=== PATIENT | male | born 1980 | race Caucasian/White ===

== ENCOUNTER 2016-10-06 20:31 | Emergency (ER) | payer SELFPAY ==
[2016-10-06 21:01] VITALS: BP 140/90
--- NOTE | 2016-10-06 22:04 | RAD ---
Indication: LEFT knee pain. Weakness and difficulty bearing weight. Injury walking upstairs. Comparison: January 10, 2015 Technique: LEFT knee: AP, tunnel, lateral, sunrise views. Report: Negative for effusion, fracture, or malalignment. Advanced osteophytosis. Moderately severe lateral joint space narrowing and partial flattening of the articular surfaces. Suggestion of accessory ossicles or loose bodies at the posterior aspect of the intercondylar notch. Unremarkable soft tissue contours. IMPRESSION: No radiographic evidence for traumatic injury. Kellgren and Vivek grade 3 osteoarthritis.
[2016-10-06] MEDS ORDERED: oxyCODONE/Acetamin 5/325 MG* TAB PO ONE (22:09)
--- NOTE | 2016-10-06 22:09 | ED ---
Lower Extremity - HPI Summary HPI Summary: 36M presents with left knee pain today. Has history of chronic knee pain that has been getting worst. He states that he had surgery on the knee as a kid and they removed some cartilage. He states that three years ago had injury and told him that he tore part of meniscus and acl but that would not operate. Says that it has been causing pain since. He says the area has been catching and popping. He states today he was walking and it gave out and his pain became extreme. He denies any twisting to his joint. He denies any numbness or tingling. He took ibuprofen for pain. - History of Current Complaint Chief Complaint: EDExtremityLower Stated Complaint: LEFT KNEE PAIN Time Seen by Provider: 10/06/16 21:15 Pain Intensity: 7 - Allergies/Home Medications Allergies/Adverse Reactions: Allergies Allergy/AdvReac Type Severity Reaction Status Date / Time Hydrocodone [From Vicodin] AdvReac Intermediate Agitation Verified 10/06/16 20: 57 Morphine AdvReac Intermediate Itching Verified 10/06/16 20:57 Ketorolac Tromethamine AdvReac Headache Verified 10/06/16 20:57 [From Toradol] PMH/Surg Hx/FS Hx/Imm Hx Endocrine/Hematology History: Denies: Hx Diabetes, Hx Systemic Lupus Erythematosus Cardiovascular History: Denies: Hx Congestive Heart Failure, Hx Hypertension Respiratory History: Reports: Hx Asthma - A CHILD, FLARE UP WITH TEMPS OVER 100 OUTSIDE GI History: Reports: Hx Gall Bladder Disease - cholecystectomy, Other GI Disorders - inguinal hernia Denies: Hx Gastroesophageal Reflux Disease, Hx Hiatal Hernia History: Denies: Hx Dialysis, Hx Renal Disease Musculoskeletal History: Denies: Hx Rheumatoid Arthritis Psychiatric History: Denies: Hx Eating Disorder, Hx of Violent Episodes Against Others - Cancer History Hx Chemotherapy: No - Surgical History Surgery Procedure, Year, and Place: 2011 GB REMOVED HERE/APPY YRS AGO, inguinal hernia repair Hx Anesthesia Reactions: No - Immunization History Date of Tetanus Vaccine: utd Infectious Disease History: No Infectious Disease History: Denies: Traveled Outside the [place] in Last 30 Days - Family History Known Family History: Positive: None, Other - Mood disorders - Social History Alcohol Use: None Hx Substance Use: No Substance Use Type: Reports: None Hx Tobacco Use: No Smoking Status (MU): Never Smoked Tobacco Review of Systems Negative: Fever Negative: Chest Pain Negative: Shortness Of Breath Positive: Other - left knee pain All Other Systems Reviewed And Are Negative: Yes Physical Exam Triage Information Reviewed: Yes Vital Signs On Initial Exam: Initial Vitals Temp Pulse Resp BP Pulse Ox 97.8 F 97 16 140/90 96 10/06/16 20:59 10/06/16 20:59 10/06/16 20:59 10/06/16 20:59 10/06/16 20:59 Vital Signs Reviewed: Yes Appearance: Positive: Pain Distress Skin: Positive: Warm, Dry Head/Face: Positive: Normal Head/Face Inspection Eyes: Positive: Normal, Conjunctiva Clear Respiratory/Lung Sounds: Positive: Clear to Auscultation, Breath Sounds Present Cardiovascular: Positive: Normal, RRR Musculoskeletal: Positive: Limited @ - left knee, Other - pos ballotment, neg anterior drawer, pos jaison, good pulses, tender over left knee Diagnostics - Vital Signs Vital Signs Temp Pulse Resp BP Pulse Ox 10/06/16 20:59 97.8 F 97 16 140/90 96 - Laboratory Lab Statement: Any lab studies that have been ordered have been reviewed, and results considered in the medical decision making process. Lower Extremity Course/Dx - Course Course Of Treatment: 36M presents with left knee pain today. Has history of chronic knee pain that has been getting worst. He states that he had surgery on the knee as a kid and they removed some cartilage. He states that three years ago had injury and told him that he tore part of meniscus and acl but that would not operate. Says that it has been causing pain since. He says the area has been catching and popping. He states today he was walking and it gave out and his pain became extreme. He denies any twisting to his joint. He denies any numbness or tingling. on exam tenderness to left knee, pos ballotment, pos jaison, neg anterior drawer. xray osteoarthritis. told to follow up with ortho for worsening of previous meniscal injury. patient understands and agrees with plan. - Diagnoses Differential Diagnosis/HQI/PQRI: Positive: Fracture (Closed), Sprain, Other - meniscal tear Provider Diagnoses: Left knee pain Discharge - Discharge Plan Condition: Good Disposition: HOME Patient Education Materials: Knee Pain (ED) Referrals: Ezekiel Benedict MD [Medical Doctor] - [facility] [Outside] Additional Instructions: Take Tylenol or ibuprofen every 6 hours as needed for pain Apply ice, rest, elevate Follow up with ortho Return to ED if develop any new or worsening symptoms
== END 2016-10-06 22:32 | disposition home or self-care (01) ==
LOC: ED 20:31
DX: M25.562 Pain in left knee (principal)
CPT/HCPCS: 99282; A9270-GY

== ENCOUNTER 2017-10-26 21:41 | Emergency (ER) | payer BC ==
[2017-10-26 23:32] LABS: ABS Basophils 0 10^3/ul (0-0.2); ABS Eosinophils 0.3 10^3/ul (0-0.6); ABS Lymphocytes 2.5 10^3/ul (1.0-4.8); ABS Monocytes 0.7 10^3/ul (0-0.8); ABS Neutrophils 4.1 10^3/ul (1.5-7.7); ABS Nucleated RBC 0 10^3/ul; Eosinophil % 3.7 % (0-6); Hematocrit 44 % (42-52); Hemoglobin 15.1 g/dl (14.0-18.0); Mean Corpuscular HGB Conc 34 g/dl (31-36); Mean Corpuscular Hemoglobin 29 pg (27-31); Mean Corpuscular Volume 85 fL (80-94); Mean Platelet Volume 8.3 um3 (7.4-10.4); Nucleated Red Blood Cells % 0.1; Platelet Count 211 10^3/ul (150-450); Red Blood Count 5.17 10^6/ul (4.00-5.40); Red Cell Distribution Width 14 % (10.5-15); White Blood Count 7.6 10^3/ul (3.5-10.8)
[2017-10-26 23:40] VITALS: BP 130/81
[2017-10-26 23:59] LABS: EGFR Non-African American 97.3 (>60)
--- NOTE | 2017-10-27 00:54 | ED ---
Complex/Multi-Sys Presentation - HPI Summary HPI Summary: Patient is a 37-year-old presenting to the ED with a variety of complaints. He endorses left-sided knee pain times several years which has been worsening over the past few days. He denies any trauma or injury. He is also endorsing some numbness or tingling which is intermittent to the bilateral hands, worse with taxing, better with rest. Patient is a otr tanker truck driver and states he is also having pain to his right forearm, also worse after shifting. He also is stating he has been unable to sleep last evening and feels that he has been having racing thoughts which is not normal for him. He denies any history of anxiety or depression. Denies any SI or HI. He has not been taking any medication for relief of his symptoms. He denies any neuro deficits. He states he was unable to go to work today due to his Friday of symptoms. Patient is obese, however denies any other health concerns. - History Of Current Complaint Chief Complaint: EDGeneral Time Seen by Provider: 10/26/17 22:00 Hx Obtained From: Patient Onset/Duration: Sudden Onset Timing: Constant Severity Currently: None Severity Initially: Mild Location: Negative - Allergies/Home Medications Allergies/Adverse Reactions: Allergies Allergy/AdvReac Type Severity Reaction Status Date / Time ketorolac [From Toradol] Allergy Hives Verified 10/26/17 21:45 PMH/Surg Hx/FS Hx/Imm Hx Previously Healthy: Yes Endocrine/Hematology History: Denies: Hx Diabetes, Hx Systemic Lupus Erythematosus Cardiovascular History: Denies: Hx Congestive Heart Failure, Hx Hypertension Respiratory History: Reports: Hx Asthma - A CHILD, FLARE UP WITH TEMPS OVER 100 OUTSIDE GI History: Reports: Hx Gall Bladder Disease - cholecystectomy, Other GI Disorders - inguinal hernia Denies: Hx Gastroesophageal Reflux Disease, Hx Hiatal Hernia History: Denies: Hx Dialysis, Hx Renal Disease Musculoskeletal History: Denies: Hx Rheumatoid Arthritis Psychiatric History: Denies: Hx Eating Disorder, Hx of Violent Episodes Against Others - Cancer History Hx Chemotherapy: No - Surgical History Surgery Procedure, Year, and Place: 2011 GB REMOVED HERE/APPY YRS AGO, inguinal hernia repair Hx Anesthesia Reactions: No - Immunization History Date of Tetanus Vaccine: utd Hx Pertussis Vaccination: No Immunizations Up to Date: Unable to Obtain/Confirm Infectious Disease History: No Infectious Disease History: Denies: Traveled Outside the [place] in Last 30 Days - Family History Known Family History: Positive: None, Other - Mood disorders - Social History Occupation: Employed Full-time Lives: With Family Alcohol Use: None Hx Substance Use: No Substance Use Type: Reports: None Hx Tobacco Use: No Smoking Status (MU): Never Smoked Tobacco Review of Systems Constitutional: Negative Negative: Fever, Chills, Fatigue, Skin Diaphoresis Negative: Palpitations, Chest Pain Negative: Shortness Of Breath, Cough Genitourinary: Negative Positive: no symptoms reported, see HPI Positive: Arthralgia - L knee Negative: Rash, Bruising Neurological: Negative Positive: Numbness - tingling intermittently Positive: Anxious All Other Systems Reviewed And Are Negative: Yes Physical Exam Triage Information Reviewed: Yes Vital Signs On Initial Exam: Initial Vitals Temp Pulse Resp BP Pulse Ox 97.9 F 97 17 142/96 96 10/26/17 21:45 10/26/17 21:45 10/26/17 21:45 10/26/17 21:45 10/26/17 21:45 Vital Signs Reviewed: Yes Appearance: Positive: Well-Appearing, Well-Nourished Skin: Positive: Warm, Skin Color Reflects Adequate Perfusion Head/Face: Positive: Normal Head/Face Inspection Eyes: Positive: EOMI, DARRION, Conjunctiva Clear Neck: Positive: Supple Respiratory/Lung Sounds: Positive: Clear to Auscultation, Breath Sounds Present Cardiovascular: Positive: RRR, Pulses are Symmetrical in both Upper and Lower Extremities Musculoskeletal: Positive: Normal, Strength/ROM Intact Neurological: Positive: Speech Normal Psychiatric: Positive: Normal, Affect/Mood Appropriate AVPU Assessment: Alert Diagnostics - Vital Signs Vital Signs Temp Pulse Resp BP Pulse Ox 10/27/17 00:38 98 F 91 18 130/81 95 10/27/17 00:00 91 95 10/26/17 23:40 97 96 10/26/17 23:16 99 97 10/26/17 23:15 88 130/81 96 10/26/17 21:45 97.9 F 97 17 142/96 96 - Laboratory Lab Results: Lab Results 10/26/17 10/26/17 Range/Units 23:22 23:22 WBC 7.6 (3.5-10.8) 10^3/ul RBC 5.17 (4.00-5.40) 10^6/ul Hgb 15.1 (14.0-18.0) g/dl Hct 44 (42-52) % MCV 85 (80-94) fL MCH 29 (27-31) pg MCHC 34 (31-36) g/dl RDW 14 (10.5-15) % Plt Count 211 (150-450) 10^3/ul MPV 8.3 (7.4-10.4) um3 Neut % (Auto) 53.2 (38-83) % Lymph % (Auto) 33.0 (25-47) % [place] % (Auto) 9.5 H (0-7) % Eos % (Auto) 3.7 (0-6) % Baso % (Auto) 0.6 (0-2) % Absolute Neuts (auto) 4.1 (1.5-7.7) 10^3/ul Absolute Lymphs (auto) 2.5 (1.0-4.8) 10^3/ul Absolute Monos (auto) 0.7 (0-0.8) 10^3/ul Absolute Eos (auto) 0.3 (0-0.6) 10^3/ul Absolute Basos (auto) 0 (0-0.2) 10^3/ul Absolute Nucleated RBC 0 10^3/ul Nucleated RBC % 0.1 Sodium 139 (135-145) mmol/L Potassium 4.4 (3.5-5.0) mmol/L Chloride 106 (101-111) mmol/L Carbon Dioxide 26 (22-32) mmol/L Anion Gap 7 (2-11) mmol/L BUN 18 (6-24) mg/dL Creatinine 0.89 (0.67-1.17) mg/dL Est GFR ( Amer) 117.7 (>60) Est GFR (Non-Af Amer) 97.3 (>60) BUN/Creatinine Ratio 20.2 H (8-20) Glucose 186 H (70-100) mg/dL Calcium 8.7 (8.6-10.3) mg/dL Magnesium 1.9 (1.9-2.7) mg/dL Total Bilirubin 0.40 (0.2-1.0) mg/dL AST 26 (13-39) U/L ALT 45 (7-52) U/L Alkaline Phosphatase 63 (34-104) U/L Troponin I 0.01 (<0.04) ng/mL Total Protein 6.6 (6.4-8.9) g/dL Albumin 3.9 (3.2-5.2) g/dL Globulin 2.7 (2-4) g/dL Albumin/Globulin Ratio 1.4 (1-3) Result Diagrams: 10/26/17 23:22 10/26/17 23:22 Lab Statement: Any lab studies that have been ordered have been reviewed, and results considered in the medical decision making process. Complex Multi-Symp Course/Dx Course Of Treatment: During the course treatment, the patient is evaluated for a multitude of complaints. Fabian's test positive unlikely significant for de Quervain's. Possibly carpal tunnel component. Left knee does not appear to be infected. No erythema or warmth or swelling. He will be referred to Dr. Scherer for further evaluation as he has been told in the past he will need surgery. Discussed anti-anxiety techniques and patient agrees that this is the likely cause of him not being able to sleep over the past day or so. Labs obtained which are all WNL. Patient is given a note for work on this date. He is okay for discharge at this time. - Diagnoses Provider Diagnoses: Knee pain, Anxiety Discharge - Sign-Out/Discharge Documenting (check all that apply): Patient Departure - Discharge Plan Condition: Stable Disposition: HOME Forms: *Gen. Provider Communication Referrals: Qiana Scherer MD [Medical Doctor] - No Primary Care Phys,NOPCP [Primary Care Provider] - - Billing Disposition and Condition Condition: STABLE Disposition: Home
== END 2017-10-27 00:38 | disposition home or self-care (01) ==
LOC: ED 21:41
DX: M25.562 Pain in left knee (principal); F41.9 Anxiety disorder, unspecified
CPT/HCPCS: 36415; 80053; 83735; 84484; 85025; 93005; 99282

== ENCOUNTER 2017-12-06 16:53 | Emergency (ER) | payer SELFPAY ==
[2017-12-06 17:15] VITALS: BP 137/76
--- NOTE | 2017-12-06 17:19 | ED ---
Skin Complaint - HPI Summary HPI Summary: This patient is a 37 year old M presenting to [facility] with a chief complaint of a bump and erythema on his right hernandez. Pt states he does not remember bumping or injuring it in any way. Pt denies Hx of these symptoms. Pt states the bump is sore and also has cold-like symptoms. Pt denies fever and ABx allergy. - History of Current Complaint Chief Complaint: EDRashSkinAbscess Time Seen by Provider: 12/06/17 17:02 Stated Complaint: RT LEG ISSUE/POSS INFECTION Hx Obtained From: Patient Onset/Duration: Started Days Ago Timing: Constant Onset Severity: Moderate Current Severity: Moderate Pain Intensity: 7 Skin Location: Discrete, Leg - Right Character: Swelling, Pain, Redness Aggravating Symptom(s): Nothing Alleviating Symptom(s): Nothing - Allergy/Home Medications Allergies/Adverse Reactions: Allergies Allergy/AdvReac Type Severity Reaction Status Date / Time ketorolac [From Toradol] Allergy Hives Verified 12/06/17 16:56 PMH/Surg Hx/FS Hx/Imm Hx Endocrine/Hematology History: Denies: Hx Diabetes, Hx Systemic Lupus Erythematosus Cardiovascular History: Denies: Hx Congestive Heart Failure, Hx Hypertension Respiratory History: Reports: Hx Asthma - A CHILD, FLARE UP WITH TEMPS OVER 100 OUTSIDE GI History: Reports: Hx Gall Bladder Disease - cholecystectomy, Other GI Disorders - inguinal hernia Denies: Hx Gastroesophageal Reflux Disease, Hx Hiatal Hernia History: Denies: Hx Dialysis, Hx Renal Disease Musculoskeletal History: Denies: Hx Rheumatoid Arthritis Psychiatric History: Denies: Hx Eating Disorder, Hx of Violent Episodes Against Others - Cancer History Hx Chemotherapy: No - Surgical History Surgery Procedure, Year, and Place: 2011 GB REMOVED HERE/APPY YRS AGO, inguinal hernia repair Hx Anesthesia Reactions: No - Immunization History Date of Tetanus Vaccine: utd Infectious Disease History: No Infectious Disease History: Denies: Traveled Outside the [place] in Last 30 Days - Family History Known Family History: Positive: Other - Mood disorders - Social History Alcohol Use: None Hx Substance Use: No Substance Use Type: Reports: None Hx Tobacco Use: No Smoking Status (MU): Never Smoked Tobacco Review of Systems Negative: Fever Positive: Other - HTN Positive: Rash - Right calf. All Other Systems Reviewed And Are Negative: Yes Physical Exam - Summary Physical Exam Summary: Appearance: Well appearing, no pain distress. Obese. Skin: warm, dry, reflects adequate perfusion. Erythema on interior hernandez with warmth. Non blanchy and has runny complexion. Head/face: normal Eyes: EOMI, DARRION ENT: mucous membranes moist Neck: supple, non-tender Respiratory: CTA, breath sounds present Cardiovascular: RRR, pulses symmetrical Abdomen: non-tender, soft Bowel Sounds: present Musculoskeletal: normal, strength/ROM intact Neuro: normal, sensory motor intact, A&Ox3 Triage Information Reviewed: Yes Vital Signs On Initial Exam: Initial Vitals Temp Pulse Resp BP Pulse Ox 98.4 F 89 16 163/71 97 12/06/17 16:57 10 16:57 12/06/17 16:57 12/06/17 16:57 12/06/17 16:57 Vital Signs Reviewed: Yes Diagnostics - Vital Signs Vital Signs Temp Pulse Resp BP Pulse Ox 12/06/17 16:57 98.4 F 89 16 163/71 97 - Laboratory Lab Statement: Any lab studies that have been ordered have been reviewed, and results considered in the medical decision making process. Course/Dx - Course Course Of Treatment: Pressure was normal when appropriate size blood pressure cuff was used. No fever. Hematoma versus mild cellulitis on the hernandez. Patient is a very large gentleman which may be contributing. Rx for clindamycin. Follow up primary care physician. Area of erythema/warmth was outlined in pen. - Differential Diagnoses - Skin Complaint Differential Diagnoses: Cellulitis, Other - Hematoma - Diagnoses Provider Diagnoses: Cellulitis of right lower extremity Discharge - Sign-Out/Discharge Documenting (check all that apply): Patient Departure - Discharge - Discharge Plan Condition: Stable Disposition: HOME Prescriptions: Clindamycin Cap(NF) [Clindamycin Cap 300 mg Cap(NF)] 300 mg PO TID #30 cap Patient Education Materials: Cellulitis (ED) Referrals: [facility] [Outside] [facility] [Outside] No Primary Care Phys,NOPCP [Primary Care Provider] - Additional Instructions: Compresses to the area. Your blood pressure was normal with appropriate size cuff. Call to schedule appointment with your primary care physician through [facility] or call to the physician referral line provided to you. Return if worse , fevers, expanding redness or other concerns as discussed. - Billing Disposition and Condition Condition: STABLE Disposition: Home - Attestation Statements Document Initiated by Scribe: Yes Documenting Scribe: Ezekiel Maurice Provider For Whom Scribe is Documenting (Include Credential): Suhail Aranda MD Scribe Attestation: I, Ezekiel Maurice, scribed for Suhail Aranda MD on 12/06/17 at 1727. Scribe Documentation Reviewed: Yes Provider Attestation: The documentation as recorded by the ericaibeEzekiel accurately reflects the service I personally performed and the decisions made by me, Suhail Aranda MD
== END 2017-12-06 17:23 | disposition home or self-care (01) ==
LOC: ED 16:53
DX: L03.115 Cellulitis of right lower limb (principal); I10 Essential (primary) hypertension; R21 Rash and other nonspecific skin eruption
CPT/HCPCS: 99282

== ENCOUNTER 2018-01-25 17:26 | Emergency (ER) | payer OTHER ==
[2018-01-25] MEDS ORDERED: Albuterol/Ipratropium NEB.SOL* Albuterol 2.5 MG/Ipratropium 0.5 MG 3 ML INH ONE (17:52)
[2018-01-25] MEDS ORDERED: Ondansetron ODT TAB* 4 MG PO ONE (17:52)
--- NOTE | 2018-01-25 17:54 | ED ---
Respiratory - HPI Summary HPI Summary: 37 year old male presents with cough for the past 3 weeks. He admits occasional sore throat. He states he had decreased appetite. States he is coughing so much is vomiting. He tried all [id number] medications without relief. States that it started 3 weeks ago and seemed to get better after a couple days and then got got worse. He admits to some chest tightness. no pain or swelling in his calves. he is not a smoker. no recent travel. no one else is sick. has a history of asthma as a child. - History of Current Complaint Chief Complaint: EDFluSymptoms Stated Complaint: CONGESTION/COUGH Time Seen by Provider: 01/25/18 17:38 Pain Intensity: 8 - Allergy/Home Medications Allergies/Adverse Reactions: Allergies Allergy/AdvReac Type Severity Reaction Status Date / Time ketorolac [From Toradol] Allergy Hives Verified 01/25/18 17:36 PMH/Surg Hx/FS Hx/Imm Hx Endocrine/Hematology History: Denies: Hx Diabetes, Hx Systemic Lupus Erythematosus Cardiovascular History: Denies: Hx Congestive Heart Failure, Hx Hypertension Respiratory History: Reports: Hx Asthma - A CHILD, FLARE UP WITH TEMPS OVER 100 OUTSIDE GI History: Reports: Hx Gall Bladder Disease - cholecystectomy, Other GI Disorders - inguinal hernia Denies: Hx Gastroesophageal Reflux Disease, Hx Hiatal Hernia History: Denies: Hx Dialysis, Hx Renal Disease Musculoskeletal History: Denies: Hx Rheumatoid Arthritis Psychiatric History: Denies: Hx Eating Disorder, Hx of Violent Episodes Against Others - Cancer History Hx Chemotherapy: No - Surgical History Surgery Procedure, Year, and Place: 2011 GB REMOVED HERE/APPY YRS AGO, inguinal hernia repair Hx Anesthesia Reactions: No - Immunization History Date of Tetanus Vaccine: utd Infectious Disease History: No Infectious Disease History: Denies: Traveled Outside the [place] in Last 30 Days - Family History Known Family History: Positive: Other - Mood disorders - Social History Alcohol Use: None Hx Substance Use: No Substance Use Type: Reports: None Hx Tobacco Use: No Smoking Status (MU): Never Smoked Tobacco Review of Systems Negative: Fever Negative: Chest Pain Positive: Shortness Of Breath, Cough Positive: Vomiting, Nausea. Negative: Abdominal Pain All Other Systems Reviewed And Are Negative: Yes Physical Exam Triage Information Reviewed: Yes Vital Signs On Initial Exam: Initial Vitals Temp Pulse Resp BP Pulse Ox 98.6 F 100 18 177/97 96 11/25/18 17:31 01/25/18 17:31 01/25/18 17:31 01/25/18 17:31 01/25/18 17:31 Vital Signs Reviewed: Yes Appearance: Positive: Well-Appearing Skin: Positive: Warm, Dry Head/Face: Positive: Normal Head/Face Inspection Eyes: Positive: Normal, EOMI, DARRION, Conjunctiva Clear ENT: Positive: Normal ENT inspection, Pharynx normal, TMs normal Neck: Positive: Supple, Nontender, No Lymphadenopathy Respiratory/Lung Sounds: Positive: Clear to Auscultation, Breath Sounds Present Cardiovascular: Positive: Normal, RRR Abdomen Description: Positive: Nontender, Soft Bowel Sounds: Positive: Present Musculoskeletal: Positive: Normal Neurological: Positive: Normal Psychiatric: Positive: Normal Diagnostics - Vital Signs Vital Signs Temp Pulse Resp BP Pulse Ox 01/25/18 17:31 98.6 F 100 18 177/97 96 - Laboratory Result Diagrams: 01/25/18 17:54 01/25/18 17:54 Lab Statement: Any lab studies that have been ordered have been reviewed, and results considered in the medical decision making process. - Radiology chest Radiology Interpretation Completed By: ED Physician Summary of Radiographic Findings: possible pneumonia RLL Re-Evaluation - Re-Evaluation First Eval Change: Improved Comment: feeling better after resp treatment Disposition - Course Course Of Treatment: 37 year old male presents with cough for the past 3 weeks. He admits occasional sore throat. He states he had decreased appetite. States he is coughing so much is vomiting. He tried all hsvz-xey-byfbbff medications without relief. States that it started 3 weeks ago and seemed to get better after a couple days and then got got worse. He admits to some chest tightness. no pain or swelling in his calves. he is not a smoker. no recent travel. no one else is sick. has a history of asthma as a child. on exam has lungs CTA. abd soft nontender. gave breathing treatment and feeling better. chest xray read by me as possible pneumonia so will treat with azithromycin. gave inhaler. patient understand and agrees with plan. - Differential Dx - Cardiopulmonary Differential Diagnoses - Cardiopulmonary: Bronchitis, Lower Resp Infection, Pulmonary Edema - Diagnoses Provider Diagnoses: Pneumonia Discharge - Sign-Out/Discharge Documenting (check all that apply): Patient Departure - Discharge Plan Condition: Good Disposition: HOME Prescriptions: Azithromycin TAB* [Zithromax TAB (Z-CARROLL) 250 mg #6 tabs] 250 mg PO DAILY #4 tab guaiFENesin/CODIEN 100MG-10MG* [Robitussin AC 100Mg-10Mg*] 5 ml PO Q6H PRN #100 ml MDD 20ml PRN Reason: Cough Patient Education Materials: Acute Bronchitis (ED) Referrals: No Primary Care Phys,NOPCP [Primary Care Provider] - Additional Instructions: Use inhaler up to two puffs every 4 hours for cough and wheezing Take antibiotic once daily starting tomorrow for 4 days Take cough medication 5ml (1 teaspoon) every 6 hours as needed cough Take Tylenol or ibuprofen for pain every 6 hours Return to ED if develop any new or worsening symptoms - Billing Disposition and Condition Condition: GOOD Disposition: Home
[2018-01-25 18:10] LABS: ABS Basophils 0 10^3/ul (0-0.2); ABS Eosinophils 0.4 10^3/ul (0-0.6); ABS Lymphocytes 2.6 10^3/ul (1.0-4.8); ABS Monocytes 1.1 10^3/ul (0-0.8); ABS Neutrophils 3.9 10^3/ul (1.5-7.7); ABS Nucleated RBC 0 10^3/ul; Eosinophil % 4.6 % (0-6); Hematocrit 46 % (42-52); Lymphocyte % 32.7 % (25-47); Mean Corpuscular HGB Conc 35 g/dl (31-36); Mean Corpuscular Hemoglobin 30 pg (27-31); Mean Corpuscular Volume 86 fL (80-94); Mean Platelet Volume 7.9 fL (7.4-10.4); Nucleated Red Blood Cells % 0.1; Platelet Count 276 10^3/ul (150-450); Red Blood Count 5.34 10^6/ul (4.00-5.40); Red Cell Distribution Width 14 % (10.5-15)
[2018-01-25 18:21] LABS: EGFR Non-African American 92.5 (>60)
[2018-01-25] MEDS ORDERED: Azithromycin TAB* 250 MG PO ONE (18:36)
[2018-01-25] MEDS ORDERED: guaiFENesin/CODIEN 100MG-10MG* 5 ML UDC PO ONE (18:36)
[2018-01-25] MEDS ORDERED: O ndansetron ODT 4MG 5TAB PRPK 4 MG PAK PO ONE (18:37)
[2018-01-25] MEDS ORDERED: A lbuterol Hfa (PREPAK) 1 MDI - ED TAKE HOME DISPENSING ONLY INHH ONE (18:49)
[2018-01-25 19:00] VITALS: BP 165/88
== END 2018-01-25 18:58 | disposition home or self-care (01) ==
LOC: ED 17:26
DX: J18.9 Pneumonia, unspecified organism (principal); Z88.5 Allergy status to narcotic agent
CPT/HCPCS: 36415; 71046; 80053; 83880; 85025; 86140; 99282; A9270-GY

== ENCOUNTER → 2018-08-09 18:28 | Emergency (ER) | payer BC, OTHER ==
[~2018-08-09 18:28] MED LIST: ALPRAZolam TAB* 0.5 MG PO ONE; Zolpidem TAB* 5 MG PO ONE
--- NOTE | 2018-08-09 20:36 | ED ---
Psychiatric Complaint - HPI Summary HPI Summary: Patient is a 38 y/o M presenting to ED with complaints of depression and anxiety. He reports that he has recently been experiencing child custody issues with his ex-. Patient denies HI/SI, but he states that he has been feeling depressed and hopeless. He states that he is "on edge" and feels like he has been "stepping on eggshells". He notes that he does not feel like being around people as of lately. Patient states that his son looked at him "like a stranger " today and this "set him off". Aggression is denied, per triage. He notes that he had an episode of palpitations, diaphoresis, and hyperventilation today, but he relates this to anxiety. Patient does note that he has been getting out- patient mental health treatment, but he claims that he has not been prescribed anything and has experienced no relief in Sx. Patient works in waste management. On triage, pain is denied, nothing is noted to aggravate/alleviate Sx. Home medications and allergies are reviewed. - History Of Current Complaint Chief Complaint: EDPsychosocial Time Seen by Provider: 08/09/18 20:13 Hx Obtained From: Patient Onset/Duration: Still Present Timing: Constant Severity Currently: None Character: Depressed, Anxious Aggravating Factor(s): Recent Stress Alleviating Factor(s): Nothing Associated Signs And Symptoms: Positive: Social Withdrawal Has Suicidal: Denies: Thoughts Has Homicidal: Denies: Thoughts - Allergies/Home Medications Allergies/Adverse Reactions: Allergies Allergy/AdvReac Type Severity Reaction Status Date / Time ketorolac [From Toradol] Allergy Hives Verified 08/09/18 19:03 morphine Allergy Itching Verified 08/09/18 19:03 Home Medications: Home Medications NK [No Home Medications Reported] 08/09/18 [History Confirmed 08/09/18] PMH/Surg Hx/FS Hx/Imm Hx Endocrine/Hematology History: Denies: Hx Diabetes, Hx Systemic Lupus Erythematosus Cardiovascular History: Denies: Hx Congestive Heart Failure, Hx Hypertension Respiratory History: Reports: Hx Asthma - A CHILD, FLARE UP WITH TEMPS OVER 100 OUTSIDE GI History: Reports: Hx Gall Bladder Disease - cholecystectomy, Other GI Disorders - inguinal hernia Denies: Hx Gastroesophageal Reflux Disease, Hx Hiatal Hernia History: Denies: Hx Dialysis, Hx Renal Disease Musculoskeletal History: Denies: Hx Rheumatoid Arthritis Psychiatric History: Denies: Hx Eating Disorder, Hx of Violent Episodes Against Others - Cancer History Hx Chemotherapy: No - Surgical History Surgery Procedure, Year, and Place: 2012 GB REMOVED HERE/APPY YRS AGO, inguinal hernia repair Hx Anesthesia Reactions: No - Immunization History Date of Tetanus Vaccine: utd Infectious Disease History: No Infectious Disease History: Denies: Traveled Outside the [place] in Last 30 Days - Family History Known Family History: Positive: Other - Mood disorders - Social History Alcohol Use: None Hx Substance Use: No Substance Use Type: Reports: None Hx Tobacco Use: No Smoking Status (MU): Never Smoked Tobacco Review of Systems Positive: Skin Diaphoresis Positive: Palpitations Respiratory: Other - POSITIVE - HYPERVENTILATION Psychological: Other - negative - HI/SI Positive: Anxious, Depressed All Other Systems Reviewed And Are Negative: Yes Physical Exam - Summary Physical Exam Summary: VITAL SIGNS: Reviewed. GENERAL: Patient is a well-developed and nourished male who is lying comfortable in the stretcher. Patient is not in any acute respiratory distress. He is tearful. HEAD AND FACE: No signs of trauma. No ecchymosis, hematomas or skull depressions. No sinus tenderness. EYES: PERRLA, EOMI x 2, No injected conjunctiva, no nystagmus. EARS: Hearing grossly intact. Ear canals and tympanic membranes are within normal limits. MOUTH: Oropharynx within normal limits. NECK: Supple, trachea is midline, no adenopathy, no JVD, no carotid bruit, no c- spine tenderness, neck with full ROM CHEST: Symmetric, no tenderness at palpation LUNGS: Clear to auscultation bilaterally. No wheezing or crackles. CVS: Regular rate and rhythm, S1 and S2 present, no murmurs or gallops appreciated. ABDOMEN: Soft, non-tender. No signs of distention. No rebound no guarding, and no masses palpated. Bowel sounds are normal. EXTREMITIES: FROM in all major joints, no edema, no cyanosis or clubbing. NEURO: Alert and oriented x 3. No acute neurological deficits. Speech is normal and follows commands. SKIN: Dry and warm Triage Information Reviewed: Yes Vital Signs On Initial Exam: Initial Vitals Temp Pulse Resp BP Pulse Ox 98.6 F 95 16 165/113 97 08/09/18 18:31 08/09/18 18:31 08/09/18 18:31 08/09/18 18:31 08/09/18 18:31 Vital Signs Reviewed: Yes Diagnostics - Vital Signs Vital Signs Temp Pulse Resp BP Pulse Ox 08/09/18 18:31 98.6 F 95 16 165/113 97 - Laboratory Lab Statement: Any lab studies that have been ordered have been reviewed, and results considered in the medical decision making process. - EKG 2049 Cardiac Rate: NL - rate of 85 BPM EKG Rhythm: Sinus Rhythm Summary of EKG Findings: EKG showed sinus rhythm with rate of 85 BPM, normal interval, normal axis, no ischemic changes. Re-Evaluation - Re-Evaluation First Eval Re-Evaluation Time: 20:32 Comment: Patient is medically cleared for MHE. Course/Dx - Course Course Of Treatment: Patient is a 38 y/o M presenting to ED with complaints of depression and anxiety. He reports that he has recently been experiencing child custody issues with his ex-. Patient denies HI/SI, but he states that he has been feeling depressed and hopeless. He states that he is "on edge" and feels like he has been "stepping on eggshells". He notes that he does not feel like being around people as of lately. Patient states that his son looked at him "like a stranger" today and this "set him off". Aggression is denied, per triage. He notes that he had an episode of palpitations, diaphoresis, and hyperventilation today, but he relates this to anxiety. Patient does note that he has been getting out-patient mental health treatment, but he claims that he has not been prescribed anything and has experienced no relief in Sx. On physical exam, patient is noted to be tearful. EKG showed sinus rhythm with rate of 85 BPM, normal interval, normal axis, no ischemic changes. Patient is medically cleared for MHE. 2214 - Mental health worker reports that the patient' s case was reviewed by Dr. Murguia. Patient will be discharged to home and followed up with PCP and [facility]. Dr. Michaels is agreeable with this. During ED course, patient received ambien 5 mg PO and Xanax 0.5 mg PO. - Differential Dx/Clinical Impression Provider Diagnosis: Anxiety - Physician Notifications Discussed Care Of Patient With: Racquel Murguia Time Discussed With Above Provider: 22:14 Instructed by Provider To: Other - 2212 - Mental health worker reports that the patient's case was reviewed by Dr. Murguia. Patient will be discharged to home and [facility] up [facility]. Michaels is agreeable with this. Discharge - Sign-Out/Discharge Documenting (check all that apply): Patient Departure - discharge Patient Received Moderate/Deep Sedation with Procedure: No - Discharge Plan Condition: Stable Disposition: HOME Patient Education Materials: Depression (ED), Grief and Loss (ED), Anxiety (ED) Referrals: NICHELLE JAVIER [facility] [Outside] Kaushik Resendez, [employer] [Primary Care Provider] - - Attestation Statements Document Initiated by Scribe: Yes Documenting Scribe: TAVIA HAWLEY Provider For Whom Scribe is Documenting (Include Credential): YEYO MICHAELS MD Scribe Attestation: ITAVIA, scribed for YEYO MICHAELS MD on 08/09/18 at [id number]. Status of Scribe Document: Ready
[2018-08-09 23:06] VITALS: BP 146/83
== END | disposition home or self-care (01) ==
LOC: ED 18:28
DX: F41.9 Anxiety disorder, unspecified (principal); F32.9 Major depressive disorder, single episode, unspecified; Z88.5 Allergy status to narcotic agent
CPT/HCPCS: 93005; 99282; A9270-GY

== ENCOUNTER 2018-12-14 10:56 | Emergency (ER) | payer BC ==
--- NOTE | 2018-12-14 11:38 | ED ---
Lower Extremity - HPI Summary HPI Summary: Pt is a 38 y/o M presenting to the ED with a chief complaint of L knee pain initially onset 20 years ago. He had a L knee injury in 9th grade that damaged the cartilage, and it was mostly manageable over that time period until the past 6-9months. Last night, he was letting his dogs out and his knee locked up at a 45 degree angle, he felt a pop at the top of his knee, and he cannot walk on it anymore. He denies any fever, or any other sx. He was unable to get in to see his PCP so he came here. - History of Current Complaint Chief Complaint: EDExtremityLower Stated Complaint: LEFT KNEE INJURY/PAIN PER PT Time Seen by Provider: 12/14/18 11:24 Hx Obtained From: Patient Mechanism Of Injury: Twisted, Other - football injury 20yrs ago Onset/Duration: Still Present Severity Initially: Moderate Severity Currently: Severe Pain Intensity: 9 Pain Scale Used: 0-10 Numeric Timing: Constant, Lasting Weeks Location: Is Discrete @ - L knee Associated Signs And Symptoms: Positive: Knee Pain. Negative: Fever Aggravating Factor(s): Standing, Movement Alleviating Factor(s): Nothing Able to Bear Weight: No - Allergies/Home Medications Allergies/Adverse Reactions: Allergies Allergy/AdvReac Type Severity Reaction Status Date / Time ketorolac [From Toradol] Allergy Headache Verified 12/14/18 11:03 PMH/Surg Hx/FS Hx/Imm Hx Previously Healthy: Yes Endocrine/Hematology History: Denies: Hx Diabetes, Hx Systemic Lupus Erythematosus Cardiovascular History: Denies: Hx Congestive Heart Failure, Hx Hypertension Respiratory History: Reports: Hx Asthma - A CHILD, FLARE UP WITH TEMPS OVER 100 OUTSIDE GI History: Reports: Hx Gall Bladder Disease - cholecystectomy, Other GI Disorders - inguinal hernia Denies: Hx Gastroesophageal Reflux Disease, Hx Hiatal Hernia History: Denies: Hx Dialysis, Hx Renal Disease Musculoskeletal History: Denies: Hx Rheumatoid Arthritis Psychiatric History: Denies: Hx Eating Disorder, Hx of Violent Episodes Against Others - Cancer History Hx Chemotherapy: No - Surgical History Surgery Procedure, Year, and Place: 2011 GB REMOVED HERE/APPY YRS AGO, inguinal hernia repair Hx Anesthesia Reactions: No - Immunization History Date of Tetanus Vaccine: utd Infectious Disease History: No Infectious Disease History: Denies: Traveled Outside the [place] in Last 30 Days - Family History Known Family History: Positive: Other - Mood disorders - Social History Alcohol Use: None Hx Substance Use: No Substance Use Type: Reports: None Hx Tobacco Use: No Smoking Status (MU): Never Smoked Tobacco Review of Systems Negative: Fever Positive: Arthralgia - L knee All Other Systems Reviewed And Are Negative: Yes Physical Exam - Summary Physical Exam Summary: Constitutional: Well-developed, Well-nourished, Alert. (-) Distressed Skin: Warm, Dry HENT: Normocephalic; Atraumatic Eyes: Conjunctiva normal Neck: Musculoskeletal ROM normal neck. (-) JVD, (-) Stridor, (-) Tracheal deviation Cardio: Rhythm regular, rate normal, Heart sounds normal; Intact distal pulses; The pedal pulses are 2+ and symmetric. Radial pulses are 2+ and symmetric. Pulmonary/Chest wall: Effort normal. (-) Respiratory distress, (-) Wheezes, (-) Rales Abd: Soft, (-) tenderness, (-) Distension, (-) Guarding, (-) Rebound Musculoskeletal: (-) Edema. Pt describes pain with ROM of the L knee, but there is no laxity, deformity, break in skin, erythema, and the pt is able to bear his weight. Neuro: Alert, Oriented x3 Psych: Mood and affect Normal Triage Information Reviewed: Yes Vital Signs On Initial Exam: Initial Vitals Temp Pulse Resp BP Pulse Ox 96.3 F 93 18 153/95 96 12/14/18 10:59 12/14/18 10:59 12/14/18 10:59 12/14/18 10:59 12/14/18 10:59 Vital Signs Reviewed: Yes Procedures - Sedation Patient Received Moderate/Deep Sedation with Procedure: No Diagnostics - Vital Signs Vital Signs Temp Pulse Resp BP Pulse Ox 12/14/18 10:59 96.3 F 93 18 153/95 96 - Laboratory Lab Statement: Any lab studies that have been ordered have been reviewed, and results considered in the medical decision making process. Lower Extremity Course/Dx - Course Course Of Treatment: Pt is a 38 y/o M presenting to the ED with a chief complaint of L knee pain initially onset 20 years ago. He had a L knee injury in 9th grade that damaged the cartilage, and it was mostly manageable over that time period until the past 6-9months. Last night, he was letting his dogs out and his knee locked up at a 45 degree angle, he felt a pop at the top of his knee, and he cannot walk on it anymore. He denies any fever, or any other sx. Pt's physical exam is completely normal. He will be d/c'ed with dx of chronic knee pain and instructed to f/u with his PCP. - Diagnoses Provider Diagnoses: Chronic knee pain Discharge ED - Sign-Out/Discharge Documenting (check all that apply): Patient Departure - Discharge Plan Condition: Stable Disposition: HOME Patient Education Materials: Knee Pain (ED) Forms: *Work Release Referrals: Kaushik Resendez NP [Primary Care Provider] - - Billing Disposition and Condition Condition: STABLE Disposition: Home - Attestation Statements Document Initiated by Tram: Yes Documenting Scribe: Hien Gutierrez Provider For Whom Tram is Documenting (Include Credential): Clovis Valladares MD. Scribe Attestation: Hien Child scribed for Clovis Valladares MD. on 12/14/18 at 1848. Scribe Documentation Reviewed: Yes Provider Attestation: The documentation as recorded by the ericaibeHien accurately reflects the service I personally performed and the decisions made by , Clovis Valladares MD. Status of Scribe Document: Viewed
[2018-12-14 11:53] VITALS: BP 00/00
== END 2018-12-14 11:41 | disposition home or self-care (01) ==
LOC: ED 10:56
DX: M25.562 Pain in left knee (principal); G89.29 Other chronic pain; Z90.49 Acquired absence of other specified parts of digestive tract; Z88.5 Allergy status to narcotic agent
CPT/HCPCS: 99282

== ENCOUNTER 2019-02-06 14:40 | Emergency (ER) | payer SELFPAY ==
[2019-02-06 14:50] VITALS: BP 137/87
--- NOTE | 2019-02-06 15:11 | UC ---
Respiratory Complaint HPI - HPI Summary HPI Summary: patient slipped on ice 1 week ago injurying right lower leg---past 3-4 days worsening pain swelling and erythema right calf---patient is not a smoker, patient drives truck for a living - History of Current Complaint Chief Complaint: UCLowerExtremity Stated Complaint: PAIN IN RIGHT LEG Time Seen by Provider: 02/06/19 15:10 Hx Obtained From: Patient Onset/Duration: Sudden Onset, Lasting Weeks - 1, Still Present, Worse Since - past 3-4 days Timing: Constant Pain Intensity: 6 Pain Scale Used: 0-10 Numeric Associated Signs And Symptoms: Positive: Calf Pain, Calf Swelling. Negative: URI - Allergies/Home Medications Allergies/Adverse Reactions: Allergies Allergy/AdvReac Type Severity Reaction Status Date / Time ketorolac [From Toradol] Allergy Headache Verified 02/06/19 14:50 PMH/Surg Hx/FS Hx/Imm Hx Previously Healthy: Yes - Surgical History Surgical History: Yes Surgery Procedure, Year, and Place: 2011 GB REMOVED HERE/APPY YRS AGO, inguinal hernia repair - Family History Known Family History: Positive: Cardiac Disease, Other - mood disorders - Social History Occupation: Employed Full-time Lives: With Family Alcohol Use: Rare Substance Use Type: None Smoking Status (MU): Never Smoked Tobacco Review of Systems All Other Systems Reviewed And Are Negative: Yes Constitutional: Positive: Negative Skin: Positive: Other - erythema, pain and swelling right lower leg Eyes: Positive: Negative ENT: Positive: Negative Respiratory: Positive: Negative Cardiovascular: Positive: Negative Gastrointestinal: Positive: Negative Genitourinary: Positive: Negative Motor: Positive: Negative Neurovascular: Positive: Negative Musculoskeletal: Positive: Edema - right lower leg Neurological: Positive: Negative Psychological: Positive: Negative Is Patient Immunocompromised?: No Physical Exam Triage Information Reviewed: Yes Appearance: Well-Appearing, No Pain Distress, Well-Nourished Vital Signs: Initial Vital Signs Temp 97.7 F 02/06/19 14:48 Pulse 88 02/06/19 14:48 Resp 18 02/06/19 14:48 BP 137/87 02/06/19 14:48 Pulse Ox 98 02/06/19 14:48 Vital Signs Reviewed: Yes Eye Exam: Normal Eyes: Positive: Conjunctiva Clear ENT Exam: Normal ENT: Positive: Normal ENT inspection, Hearing grossly normal. Negative: Trismus , Muffled voice, Hoarse voice Dental Exam: Normal Neck exam: Normal Neck: Positive: Supple, Nontender Respiratory Exam: Normal Respiratory: Positive: Chest non-tender, Lungs clear, Normal breath sounds, No respiratory distress, No accessory muscle use Cardiovascular Exam: Normal Cardiovascular: Positive: RRR, No Murmur, Pulses Normal, Brisk Capillary Refill Musculoskeletal: Positive: Strength Intact, ROM Intact, Edema @ - right lower leg Neurological Exam: Normal Neurological: Positive: Alert, Muscle Tone Normal Psychological Exam: Normal Skin: Positive: Other - erythema right lower leg Respiratory Course/Dx - Course Course Of Treatment: d/c from urgent care with recommendation to go to the ED for further assessment - Differential Dx/Diagnosis Provider Diagnosis: Edema of right lower extremity Discharge ED - Sign-Out/Discharge Documenting (check all that apply): Patient Departure All imaging exams completed and their final reports reviewed: No Studies - Discharge Plan Condition: Fair Disposition: HOME-RECOMMEND TO ED Patient Education Materials: Leg Edema (ED) Referrals: Kaushik Resendez [employer] [Primary Care Provider] - Additional Instructions: Please go directly to emergency department for additional assessment - Billing Disposition and Condition Condition: FAIR Disposition: Home-Recommend to ED
== END 2019-02-06 15:42 | disposition home health service (06) ==
LOC: UCEAST 14:40
DX: R60.0 Localized edema (principal); S89.91XA Unspecified injury of right lower leg, initial encounter; M79.89 Other specified soft tissue disorders; W00.0XXA Fall on same level due to ice and snow, initial encounter; Y92.9 Unspecified place or not applicable
CPT/HCPCS: 99212; G0463

== ENCOUNTER 2019-02-06 16:29 | Emergency (ER) | payer SELFPAY ==
--- NOTE | 2019-02-06 18:00 | ED ---
Lower Extremity - HPI Summary HPI Summary: This patient is a 39 year old male presenting to [facility] with a chief complaint of erythema and pain to his RLE from his ankle to the back of the knee, accompanied by edema. Patient went to , told likely cellulitis but sent to ED for further w/u. He noticed this yesterday morning and has only gotten worse since. He states he feels numbness in his feet 2/2 swelling but still has sensation and is able to ambulate. He states it is painful and rates the pain 9/ 10 in severity. Denies fevers. No known trauma. No hx DVT. Swelling only became present after erythema. - History of Current Complaint Chief Complaint: EDRashSkinAbscess Stated Complaint: RT LEG SWOLLEN PER PT Time Seen by Provider: 02/06/19 17:37 Hx Obtained From: Patient Onset/Duration: Days Pain Intensity: 9 Pain Scale Used: 0-10 Numeric Timing: Constant Associated Signs And Symptoms: Positive: Swelling, Redness - Allergies/Home Medications Allergies/Adverse Reactions: Allergies Allergy/AdvReac Type Severity Reaction Status Date / Time ketorolac [From Toradol] Allergy Headache Verified 02/06/19 16:40 PMH/Surg Hx/FS Hx/Imm Hx Endocrine/Hematology History: Denies: Hx Diabetes, Hx Systemic Lupus Erythematosus Cardiovascular History: Denies: Hx Congestive Heart Failure, Hx Hypertension Respiratory History: Reports: Hx Asthma - A CHILD, FLARE UP WITH TEMPS OVER 100 OUTSIDE GI History: Reports: Hx Gall Bladder Disease - cholecystectomy, Other GI Disorders - inguinal hernia Denies: Hx Gastroesophageal Reflux Disease, Hx Hiatal Hernia History: Denies: Hx Dialysis, Hx Renal Disease Musculoskeletal History: Denies: Hx Rheumatoid Arthritis Psychiatric History: Denies: Hx Eating Disorder, Hx of Violent Episodes Against Others - Cancer History Hx Chemotherapy: No - Surgical History Surgery Procedure, Year, and Place: 2011 GB REMOVED HERE/APPY YRS AGO, inguinal hernia repair Hx Anesthesia Reactions: No - Immunization History Date of Tetanus Vaccine: utd Infectious Disease History: No Infectious Disease History: Denies: Traveled Outside the [place] in Last 30 Days - Family History Known Family History: Positive: Cardiac Disease, Other - mood disorders - Social History Alcohol Use: Rare Hx Substance Use: No Substance Use Type: Reports: None Hx Tobacco Use: No Smoking Status (MU): Never Smoked Tobacco Review of Systems Negative: Fever Positive: Edema, Other - RLE pain Positive: Other - Erythema All Other Systems Reviewed And Are Negative: Yes Physical Exam - Summary Physical Exam Summary: Constitutional: Well-developed, Well-nourished, Alert. (-) Distressed Skin: Warm, Dry HENT: Normocephalic; Atraumatic Eyes: Conjunctiva normal Neck: Musculoskeletal ROM normal neck. (-) JVD, (-) Stridor, (-) Nuchal rigidity Cardio: Rhythm regular, rate normal, Heart sounds normal; Intact distal pulses; Radial pulses are 2+ and symmetric. (-) Murmur Pulmonary/Chest wall: Effort normal. (-) Respiratory distress, (-) Wheezes, (-) Rales Abd: Soft, (-) tenderness, (-) Distension, (-) Guarding, (-) Rebound Musculoskeletal: RLE [id number] area of erythema to the right medial calf with streaking to the mid thigh. Trace edema to the RLE. Tenderness diffusely over the calf. 2+ DP pulse Lymph: (-) Cervical adenopathy Neuro: Alert, Oriented x3 Psych: Mood and affect Normal Triage Information Reviewed: Yes Vital Signs On Initial Exam: Initial Vitals Temp Pulse Resp BP Pulse Ox 98.9 F 85 16 158/95 97 02/06/19 16:34 02/06/19 16:34 02/06/19 16:34 02/06/19 16:34 02/06/19 16:34 Vital Signs Reviewed: Yes Procedures - Sedation Patient Received Moderate/Deep Sedation with Procedure: No Diagnostics - Vital Signs Vital Signs Temp Pulse Resp BP Pulse Ox 02/06/19 16:34 98.9 F 85 16 158/95 97 - Laboratory Result Diagrams: 02/06/19 18:13 02/06/19 18:13 Lab Statement: Any lab studies that have been ordered have been reviewed, and results considered in the medical decision making process. - Radiology RLE XR Radiology Interpretation Completed By: Radiologist Summary of Radiographic Findings: No acute findings. ED Provider has reviewed this report. Re-Evaluation - Re-Evaluation First Eval Re-Evaluation Time: 19:16 Change: Unchanged Comment: Gave Toradol for pain to no relief, so the patient will be administered Percocet. Second Eval Re-Evaluation Time: 20:35 Change: Improved - LA dec to normal. VSS NAD. Ambulated in ED. Given clindamycin Rx Lower Extremity Course/Dx - Course Course Of Treatment: 39 y/o male p/w RLE pain consistent with cellulitis. - exam w erythema to RLE, tenderness over LE, streaking to inner thigh. - edema is secondary to cellulitis, lower suspicion for DVT. - labs w elevated LA, given IVF (2L), clindamycin. XR w/o free air, low suspicion necrotizing fasciitis. Repeat lactic acid - Diagnoses Provider Diagnoses: Cellulitis Discharge ED - Sign-Out/Discharge Documenting (check all that apply): Patient Departure - Discharge - Discharge Plan Condition: Stable Disposition: HOME Prescriptions: Clindamycin Cap(NF) [Clindamycin Cap 300 mg Cap(NF)] 300 mg PO Q6H 7 Days #28 cap Patient Education Materials: Cellulitis (ED) Referrals: Kaushik Resendez [employer] [Primary Care Provider] - Additional Instructions: You were seen in the emergency department for leg pain and redness. You have cellulitis. Please take clindamycin 4 times a day for 7 days, return for worsening pain, fevers, redness. Your rash may become worse on day 1 of antibiotics, this is normal. If any studies were not completed at the time of discharge you will be called with the relevant results. Please follow up with your primary care doctor in next 2-3 days and return to emergency department for worsening or concerning symptoms. It was a pleasure taking care of you today. - Billing Disposition and Condition Condition: STABLE Disposition: Home - Attestation Statements Document Initiated by Tram: Yes Documenting Hayderibe: Ezekiel Maurice Provider For Whom Tram is Documenting (Include Credential): Kylie Alston MD Scribe Attestation: IEzekiel, scribed for Kylie Alston MD on 02/06/19 at 2054. Scribe Documentation Reviewed: Yes Provider Attestation: The documentation as recorded by the Ezekiel sainz accurately reflects the service I personally performed and the decisions made by me, Kylie Alston MD Status of [place]ribcollette Document: Viewed
[2019-02-06] MEDS ORDERED: NS 0.9% 1000 ML** 1,000 ML IV ONE ×2 (18:04→18:44)
[2019-02-06] MEDS ORDERED: Clindamycin 600 MG/D5W BAG(*) 600 MG/50 ML BAG IV ONE (18:04)
[2019-02-06] MEDS ORDERED: Ketorolac INJ* 30 MG/ML 1 ML VIAL IV ONE (18:04)
[2019-02-06 18:20] LABS: ABS Eosinophils 0.1 10^3/ul (0-0.6); ABS Lymphocytes 1.7 10^3/ul (1.0-4.8); ABS Monocytes 0.8 10^3/ul (0-0.8); ABS Neutrophils 2.4 10^3/ul (1.5-7.7); Eosinophil % 1.8 %; Hematocrit 44 % (42-52); Hemoglobin 14.9 g/dL (14.0-18.0); Lymphocyte % 34.7 %; Mean Corpuscular HGB Conc 34 g/dL (31-36); Mean Corpuscular Hemoglobin 29 pg (27-31); Mean Corpuscular Volume 86 fL (80-94); Mean Platelet Volume 7.8 fL (7.4-10.4); Nucleated Red Blood Cells % 0.1; Platelet Count 184 10^3/uL (150-450); Red Blood Count 5.11 10^6 /uL (4.18-5.48); Red Cell Distribution Width 14 % (10-15); White Blood Count 4.9 10^3/uL (3.5-10.8)
[2019-02-06 18:37] LABS: Albumin/Globulin Ratio 1.1 (1-3); Calcium 9.2 mg/dL (8.6-10.3); EGFR African American 114.9 (>60); Globulin 3.5 g/dL (2-4); Potassium 3.7 mmol/L (3.5-5.0); Total Bilirubin 0.6 mg/dL (0.2-1.0); Total Protein 7.5 g/dL (6.4-8.9)
[2019-02-06] MEDS ORDERED: oxyCODONE/Acetamin 5/325 MG* TAB PO ONE (19:16)
[2019-02-06] MEDS ORDERED: Ondansetron ODT TAB* 4 MG PO ONE (20:20)
[2019-02-06] MEDS ORDERED: Clindamycin CAP* 150 MG PO ONE (20:44)
[2019-02-06 21:46] VITALS: BP 134/66
== END 2019-02-06 21:45 | disposition home or self-care (01) ==
LOC: ED 16:29
DX: L03.115 Cellulitis of right lower limb (principal); Z88.5 Allergy status to narcotic agent; Z90.49 Acquired absence of other specified parts of digestive tract
CPT/HCPCS: 36415; 80053; 83605; 85025; 96361; 96365; 96375; 99283; A9270-GY; J1885

== ENCOUNTER 2019-02-08 21:03 | Emergency (ER) | payer SELFPAY ==
[2019-02-08 22:14] LABS: ABS Eosinophils 0.2 10^3/ul (0-0.6); ABS Lymphocytes 2.2 10^3/ul (1.0-4.8); ABS Monocytes 0.6 10^3/ul (0-0.8); ABS Neutrophils 2.6 10^3/ul (1.5-7.7); Hematocrit 41 % (42-52); Lymphocyte % 39.2 %; Mean Corpuscular HGB Conc 34 g/dL (31-36); Mean Corpuscular Hemoglobin 29 pg (27-31); Mean Corpuscular Volume 85 fL (80-94); Mean Platelet Volume 7.7 fL (7.4-10.4); Platelet Count 240 10^3/uL (150-450); Red Blood Count 4.82 10^6 /uL (4.18-5.48); Red Cell Distribution Width 14 % (10-15); White Blood Count 5.7 10^3/uL (3.5-10.8)
[2019-02-08 22:32] LABS: Albumin 3.8 g/dL (3.2-5.2); Albumin/Globulin Ratio 1.4 (1-3); BUN/Creatinine Ratio 17.6 (8-20); C Reactive Protein 19.16 mg/L (<8.01); Calcium 8.7 mg/dL (8.6-10.3); EGFR African American 122.7 (>60); EGFR Non-African American 101.4 (>60); Globulin 2.8 g/dL (2-4); Potassium 3.9 mmol/L (3.5-5.0); Total Bilirubin 0.6 mg/dL (0.2-1.0); Total Protein 6.6 g/dL (6.4-8.9)
--- NOTE | 2019-02-09 00:55 | ED ---
Lower Extremity - HPI Summary HPI Summary: Pt is a 39 y/o M presenting to the ED with a chief complaint of RLE pain. He was here on 02/06/19 for the same symptoms, was treated with Clindamycin for cellulitis, but states his edema and pain is worse. He also notes splotchy erythema. He is able to ambulate. - History of Current Complaint Chief Complaint: EDExtremityLower Stated Complaint: RIGHT LEG PAIN AND SWOLLEN PER PT Time Seen by Provider: 02/09/19 00:37 Hx Obtained From: Patient Mechanism Of Injury: Unknown Onset of Pain: Days Onset/Duration: Still Present Severity Initially: Moderate Severity Currently: Severe Pain Intensity: 8 Pain Scale Used: 0-10 Numeric Timing: Constant, Lasting Days Location: Is Discrete @ - R calf Associated Signs And Symptoms: Positive: Swelling, Redness Aggravating Factor(s): Nothing Alleviating Factor(s): Nothing Able to Bear Weight: Yes - Allergies/Home Medications Allergies/Adverse Reactions: Allergies Allergy/AdvReac Type Severity Reaction Status Date / Time ketorolac [From Toradol] Allergy Headache Verified 02/08/19 21:22 PMH/Surg Hx/FS Hx/Imm Hx Previously Healthy: Yes Endocrine/Hematology History: Denies: Hx Diabetes, Hx Systemic Lupus Erythematosus Cardiovascular History: Denies: Hx Congestive Heart Failure, Hx Hypertension Respiratory History: Reports: Hx Asthma - A CHILD, FLARE UP WITH TEMPS OVER 100 OUTSIDE GI History: Reports: Hx Gall Bladder Disease - cholecystectomy, Other GI Disorders - inguinal hernia Denies: Hx Gastroesophageal Reflux Disease, Hx Hiatal Hernia History: Denies: Hx Dialysis, Hx Renal Disease Musculoskeletal History: Denies: Hx Rheumatoid Arthritis Psychiatric History: Denies: Hx Eating Disorder, Hx of Violent Episodes Against Others - Cancer History Hx Chemotherapy: No - Surgical History Surgery Procedure, Year, and Place: 2011 GB REMOVED HERE/APPY YRS AGO, inguinal hernia repair Hx Anesthesia Reactions: No - Immunization History Date of Tetanus Vaccine: utd Infectious Disease History: No Infectious Disease History: Denies: Traveled Outside the [place] in Last 30 Days - Family History Known Family History: Positive: Cardiac Disease, Other - mood disorders - Social History Alcohol Use: Rare Hx Substance Use: No Substance Use Type: Reports: None Hx Tobacco Use: No Smoking Status (MU): Never Smoked Tobacco Review of Systems Positive: Myalgia, Edema Positive: Other - erythema All Other Systems Reviewed And Are Negative: Yes Physical Exam - Summary Physical Exam Summary: Appearance: Morbidly obese male lying on the bed in NAD. Afebrile. Skin: Warm, dry, no obvious rash Eyes: sclera anicteric, no conjunctival pallor ENT: mucous membranes moist Neck: deferred Respiratory: No signs of respiratory distress Cardiovascular: Appears well perfused, pulses are nml Abdomen: deferred Musculoskeletal: Moving all 4 extremities without obvious discomfort. Brawny edema in the lower part of the R leg extending just above the ankle. No lymphangitic streaking. No angry redness. Neurological: Awake and alert, mentation is normal, speech is fluent and appropriate Psychiatric: affect is normal, does not appear anxious or depressed Triage Information Reviewed: Yes Vital Signs On Initial Exam: Initial Vitals Temp Pulse Resp BP Pulse Ox 98.2 F 83 15 150/98 97 02/08/19 21:07 02/08/19 21:07 02/08/19 21:07 02/08/19 21:07 02/08/19 21:07 Vital Signs Reviewed: Yes Procedures - Sedation Patient Received Moderate/Deep Sedation with Procedure: No Diagnostics - Vital Signs Vital Signs Temp Pulse Resp BP Pulse Ox 02/09/19 00:08 98.1 F 92 20 164/91 97 02/08/19 21:07 98.2 F 83 15 150/98 97 - Laboratory Lab Results: Lab Results 02/08/19 02/08/19 02/08/19 Range/Units 22:06 22:06 22:06 WBC 5.7 (3.5-10.8) 10^3/uL RBC 4.82 (4.18-5.48) 10^6 /uL Hgb 14.0 (14.0-18.0) g/dL Hct 41 L (42-52) % MCV 85 (80-94) fL MCH 29 (27-31) pg MCHC 34 (31-36) g/dL RDW 14 (10-15) % Plt Count 240 (150-450) 10^3/uL MPV 7.7 (7.4-10.4) fL Neut % (Auto) 46.4 % Lymph % (Auto) 39.2 % Barnes % (Auto) 10.1 % Eos % (Auto) 4.0 % Baso % (Auto) 0.3 % Absolute Neuts (auto) 2.6 (1.5-7.7) 10^3/ul Absolute Lymphs (auto) 2.2 (1.0-4.8) 10^3/ul Absolute Monos (auto) 0.6 (0-0.8) 10^3/ul Absolute Eos (auto) 0.2 (0-0.6) 10^3/ul Absolute Basos (auto) 0.0 (0-0.2) 10^3/ul Absolute Nucleated RBC 0.0 10^3/ul Nucleated RBC % 0.0 Sodium 140 (135-145) mmol/L Potassium 3.9 (3.5-5.0) mmol/L Chloride 104 (101-111) mmol/L Carbon Dioxide 30 (22-32) mmol/L Anion Gap 6 (2-11) mmol/L BUN 15 (6-24) mg/dL Creatinine 0.85 (0.67-1.17) mg/dL Est GFR ( Amer) 122.7 (>60) Est GFR (Non-Af Amer) 101.4 (>60) BUN/Creatinine Ratio 17.6 (8-20) Glucose 121 H (70-100) mg/dL Lactic Acid 0.9 (0.5-2.0) mmol/L Calcium 8.7 (8.6-10.3) mg/dL Total Bilirubin 0.60 (0.2-1.0) mg/dL AST 25 (13-39) U/L ALT 36 (7-52) U/L Alkaline Phosphatase 47 (34-104) U/L C-Reactive Protein 19.16 H (<8.01) mg/L Total Protein 6.6 (6.4-8.9) g/dL Albumin 3.8 (3.2-5.2) g/dL Globulin 2.8 (2-4) g/dL Albumin/Globulin Ratio 1.4 (1-3) Result Diagrams: 02/08/19 22:06 02/08/19 22:06 Lab Statement: Any lab studies that have been ordered have been reviewed, and results considered in the medical decision making process. - Ultrasound DVT US Ultrasound Interpretation Completed By: Radiologist Summary of Ultrasound Findings: No right lower extremity deep vein thrombosis. Incompletely visualized calf veins. ED physician has reviewed this report. Lower Extremity Course/Dx - Course Course Of Treatment: Pt is a 39 y/o M presenting to the ED with a chief complaint of RLE pain. He was here on 02/06/19 for the same symptoms, was treated with Clindamycin for cellulitis, but states his edema and pain is worse. He also notes splotchy erythema. He is able to ambulate. DVT US shows : No right lower extremity deep vein thrombosis. Incompletely visualized calf veins. On exam, pt is a Morbidly obese male lying on the bed in NAD. Afebrile. There is brawny edema in the lower part of the R leg extending just above the ankle. No lymphangitic streaking. No angry redness. He will be d/c'ed with dx of cellulitis. He is stable and agreeable with this plan. - Diagnoses Provider Diagnoses: Cellulitis Discharge ED - Sign-Out/Discharge Documenting (check all that apply): Patient Departure - Discharge Plan Condition: Stable Disposition: HOME Patient Education Materials: Cellulitis (ED) Forms: *Work Release Referrals: Kaushik Resendez NP [Primary Care Provider] - Additional Instructions: I think your infection is responding at about the rate I would expect. Over the next few days the pain should start decreasing quite a bit, but the swelling and discoloration will take several weeks to resolve, even after the infection is treated. Your blood counts are normal and the US was negative for blood clots , which gives us some more reassurance that things are going well. - Billing Disposition and Condition Condition: STABLE Disposition: Home - Attestation Statements Document Initiated by Tram: Yes Documenting Scribe: Hien Gutierrez Provider For Whom Tram is Documenting (Include Credential): Tariq Smalls MD. Scribe Attestation: I, Hien Gutierrez, scribed for Tariq Smalls MD. on 02/09/19 at 0629. Scribe Documentation Reviewed: Yes Provider Attestation: The documentation as recorded by the Hien sainz accurately reflects the service I personally performed and the decisions made by me, Tariq Smalls MD. Status of Scribe Document: Viewed
[2019-02-09 02:01] VITALS: BP 124/78
== END 2019-02-09 01:55 | disposition home or self-care (01) ==
LOC: ED 21:03
DX: L03.115 Cellulitis of right lower limb (principal); R60.0 Localized edema; Z88.5 Allergy status to narcotic agent
CPT/HCPCS: 36415; 80053; 83605; 85025; 86140; 99282